=== PATIENT | male | born 1950 | race Two or more races ===

== ENCOUNTER 2025-01-06 18:41 | Emergency (ER) | payer MEDICARE, BC ==
[~2025-01-06] VITALS: Ht 175.3 cm; Wt 72.1 kg
[2025-01-06] MEDS ORDERED: ONDANSETRON HCL/PF 4 MG/2 ML VIAL ONE (19:14)
[2025-01-06] MEDS ORDERED: MORPHINE SULFATE INJ 4 MG/ML DISP.SYRIN ONE (19:15)
[2025-01-06 19:24] LABS: PLATELET COUNT (AUTO) 208 K/uL (150-450); RED BLOOD CELL COUNT(AUTO) 4.71 MIL/uL (4.5-6.0); RED CELL DISTRIBUTION WIDTH 13.5 % (11.5-15.0); WHITE BLOOD COUNT (AUTO) 6.5 K/uL (4.3-11.0)
[2025-01-06] MEDS: IV NS 0.9% 1,000 ML BAG IV ONE (19:29)
[2025-01-06] MEDS: ONDANSETRON HCL/PF 4 MG/2 ML VIAL IVP ONE (19:30)
[2025-01-06 19:31] LABS: CALCIUM, SERUM 8.8 mg/dL (8.5-10.1); CREATININE 1.0 mg/dL (0.6-1.3); SODIUM SERUM 141 mmol/L (136-145); UREA NITROGEN, BLOOD 16 mg/dL (7-18)
[2025-01-06] MEDS: MORPHINE SULFATE INJ 2 MG/ML DISP.SYRIN IV ONE (19:31)
[2025-01-06 19:37] LABS: ASPARTATE AMINOTRANSFERASE 21 U/L (15-37); TOTAL PROTEIN, SERUM 7.5 g/dL (6.4-8.2)
[2025-01-06] MEDS: METOCLOPRAMIDE HCL 10 MG/2 ML VIAL IV ONE (20:48)
[2025-01-06 21:30] LABS: APPEARANCE,URINE CLEAR (CLEAR); BLOOD, URINE NEGATIVE Ery/uL (NEGATIVE); LEUKOCYTE ESTERASE ,URINE NEGATIVE (NEGATIVE); NITRITE, URINE NEGATIVE (NEGATIVE); UGLUCOSE NEGATIVE (NEGATIVE)
[2025-01-06 21:50] LABS: ADD URINE CULTURE NO; SQUAMOUS EPITHELIAL CELL,UR 0-2 /HPF (None Seen)
[2025-01-06] MEDS ORDERED: DICY10CA37 PO (22:13)
[2025-01-06] MEDS ORDERED: ONDA4TAB11 PO (22:13)
[2025-01-06 22:29] VITALS: BP 121/63; TEMP 97.8; O2SAT 98
== END 2025-01-06 22:30 | disposition home or self-care (01) ==
LOC: ER 19:04
DX: R10.9 Unspecified abdominal pain (principal); R19.7 Diarrhea, unspecified; R11.0 Nausea; R55 Syncope and collapse; E78.5 Hyperlipidemia, unspecified
CPT/HCPCS: 99285; 74176; 96374; 96361; 93005; 85025; 80048; 83690; 80076; 81001; 36415; 84484 ×2; J2405; J7030; J2270